=== PATIENT | male | born 1960 | race Caucasian/White ===

== ENCOUNTER → 2017-06-28 | Outpatient (CLI) | payer OTHER ==
[~2017-06-28] MED LIST: NO MEDICATIONS; PANTOPRAZOLE SO40 MG PO
--- NOTE | ~2017-06-28 | CT3 ---
[facility] A Service [facility] RADIOLOGY TEXT RESULTS PATIENT: LORRAINE VERDUGO LOCATION: [facility] : 64 UNIT #: [id number] AGE: [address]: Landry Longoria MD SEX: M ORDER DR: [id number] [facility] [address] [place], [place] [address] [id number] O MR#: [id number] [facility] #: [id number] NAME: LORRAINE VERDUGO : 1960 SEX: M STUDY DATE/TIME: 06/28/2017 14:18 UNIT: [facility] ROOM: STUDY DESCRIPTION: CT Abd and Pelv WWo Cont Attending Physician: Landry Longoria M.D. Referring Physician: Landry Longoria M.D. Ordering Physician: Landry Longoria M.D. Primary Care Physician: Parish Phipps M.D. MEDICAL IMAGING REPORT This report is preliminary unless electronic signature is present EXAM Abdomen and pelvis CT without and with contrast 06/28/2017 INDICATIONS 56-year-old male with pain in the left lower quadrant. Dysuria. Left flank pain 2 days. No history of malignancy. TECHNIQUE Noncontrast CT of the abdomen and pelvis was performed followed by contrast-enhanced imaging in multiple phases with attention to the kidneys. This CT exam was performed with one or more of the following radiation dose reduction techniques: automatic exposure control, adjustment of mA and/or kV according to patient size, and iterative reconstruction. COMPARISON We have no comparison studies. FINDINGS CT abdomen without contrast: Included lung bases are clear. There is no effusion. Incidental small hiatal hernia. There is no radiopaque stone or hydronephrosis of either kidney. No suspicious calcifications elsewhere in the abdomen. CT pelvis: Bladder unremarkable. No evidence of recently passed stone. The appendix is normal. There are inflammatory changes of the descending colon most characteristic of acute diverticulitis, better characterized on the postcontrast images. Contrast enhanced abdomen: [facility] A Service [facility] RADIOLOGY TEXT RESULTS PATIENT: LORRAINE VERDUGO [id number] 64 UNIT #: [id number] AGE: [address]: Landry Longoria MD SEX: M ORDER DR: The spleen and adrenal glands are unremarkable. The pancreas is unremarkable and the gallbladder is normal. Liver unremarkable. Kidneys unremarkable. No adenopathy. CT Pelvis: The prostate is borderline in size. Correlate with PSA levels and physical exam findings. It measures at least 3.1 x 4.6 cm. Bladder unremarkable. Bilateral ureteral jets present. No free fluid or drainable fluid collection in the pelvis. There is a moderate to moderately severe acute diverticulitis of the distal descending colon. The affected portion of the descending colon spans a distance of at least 3-5 cm. The affected colon demonstrates wall thickening and there is stranding of the adjacent pericolonic fat. Trace amount of fluid in left pericolic gutter. At this point there is no distinct abscess, free air or bowel obstruction. Inguinal canals demonstrate reactive-appearing lymph nodes. Terminal ileum unremarkable. Osseous structures demonstrate no suspicious bone lesion. IMPRESSION 1. Abnormal examination. I have paged the office of the ordering physician Dr. Longoria at the time of this dictation. I am awaiting a return phone call through the office answering service. The examination is abnormal demonstrating acute diverticulitis at the distal descending colon extending over a distance of about 3-5 cm. This is at least moderately severe to severe, but at this point there is no evidence of free air, bowel obstruction or associated drainable fluid collection. Trace fluid in the left pericolic gutter. 2. Normal appendix. 3. Small hiatal hernia. 4. Prostatomegaly which should be correlated clinically. 5. This has been marked a STAT dictation. 6. Findings in the case have now been personally discussed by telephone with the ordering physician, Dr. Longoria, at the time of this dictation. STAT * RESULT Dictated by... Joselito Nova M.D. [facility] A Service of [facility] RADIOLOGY TEXT RESULTS PATIENT: LORRAINE VERDUGO LOCATION: [facility] : 64 UNIT #: [id number] AGE: [address]: Landry Longoria MD SEX: M ORDER DR: THIS IS AN ELECTRONICALLY VERIFIED REPORT Joselito Nova M.D. at 07/01/2017 9:10 AM MIGUELITO/savita TD: 06/28/2017 17:55 JOB #: [id number] MEDICAL IMAGING REPORT Page 1 of 1 COPY
== END | disposition home or self-care (01) ==
LOC: CCAT 13:14
DX: R10.32 Left lower quadrant pain (principal); R30.0 Dysuria; R93.5 Abnormal findings on diagnostic imaging of other abdominal regions, including retroperitoneum; K44.9 Diaphragmatic hernia without obstruction or gangrene; N40.0 Benign prostatic hyperplasia without lower urinary tract symptoms
CPT/HCPCS: 74178; Q9967